=== PATIENT | female | born 1935 | race Two or more races ===

== ENCOUNTER → 2021-02-19 | Day surgery (SDC) | payer OTHER, BC ==
[2021-02-17 13:52] VITALS: BMI 18.3
[2021-02-19 09:38] VITALS: TEMP 98
[2021-02-19 10:38] VITALS: BP 121/64; PULSE 85
== END | disposition home or self-care (01) ==
LOC: JASU-ENDO 04:39
PROVIDERS: ATTEND Internal Medicine Gastroenterology
PROC: 0DB98ZX Excision of Duodenum, Via Natural or Artificial Opening Endoscopic, Diagnostic (ICD-10-PCS; 2021-02-19)
PROC: 0DB78ZX Excision of Stomach, Pylorus, Via Natural or Artificial Opening Endoscopic, Diagnostic (ICD-10-PCS; 2021-02-19)
PROC: 0DB68ZX Excision of Stomach, Via Natural or Artificial Opening Endoscopic, Diagnostic (ICD-10-PCS; 2021-02-19)
PROC: 0DB28ZX Excision of Middle Esophagus, Via Natural or Artificial Opening Endoscopic, Diagnostic (ICD-10-PCS; 2021-02-19)
PROC: 0DB38ZX Excision of Lower Esophagus, Via Natural or Artificial Opening Endoscopic, Diagnostic (ICD-10-PCS; 2021-02-19)
PROC: 0DJD8ZZ Inspection of Lower Intestinal Tract, Via Natural or Artificial Opening Endoscopic (ICD-10-PCS; principal; 2021-02-19 09:00)
DX: Z12.11 Encounter for screening for malignant neoplasm of colon (principal); K64.8 Other hemorrhoids; K57.30 Diverticulosis of large intestine without perforation or abscess without bleeding; K31.7 Polyp of stomach and duodenum; K29.50 Unspecified chronic gastritis without bleeding; K44.9 Diaphragmatic hernia without obstruction or gangrene; K29.80 Duodenitis without bleeding

== ENCOUNTER 2021-11-28 18:10 | Inpatient (IN) | payer OTHER, BC ==
[2021-11-28 19:54] LABS: BASO % 0.6 % (0-2.0); EOS % 1.7 % (0-4.5); HEMOGLOBIN 11.4 GM/dL (10.7-15.3); LYMPH % 21.5 % (8-40); MCH 31.1 pg (25.7-33.7); MCHC 34.5 g/dl (32.0-36.0); MEAN CELL VOLUME 90.2 fl (80-96); MEAN PLT VOLUME 9.2 fl (7.5-11.1); MONO % 8.5 % (3.8-10.2); NEUT % 67.7 % (42.8-82.8); PLATELET COUNT 182 10^3/uL (134-434); RBC 3.66 M/mm3 (3.60-5.2); RDW 13.5 % (11.6-15.6)
[2021-11-28 19:58] LABS: EPI CELLS 3 /uL (0-25.1); HYALINE CASTS 0 /uL (0-3.1); PH,URINE 5.5 (5.0-8.0); URINE APPEARANCE CLEAR; URINE BACTERIA 4 /uL (0-1359); URINE BILIRUBIN NEGATIVE (NEGATIVE); URINE COLOR YELLOW; URINE GLUCOSE (UA) NEGATIVE (NEGATIVE); URINE KETONE NEGATIVE (NEGATIVE); URINE LEUK ESTERASE NEGATIVE (NEGATIVE); URINE NITRITE NEGATIVE (NEGATIVE); URINE PROTEIN NEGATIVE (NEGATIVE); URINE RBC 3 /uL (0-23.9); URINE UROBILINOGEN 0.2 mg/dL (0.2-1.0); URINE WBC 7 /uL (0-25.8)
[2021-11-28 20:14] LABS: CALCIUM 8.7 mg/dL (8.5-10.1)
[2021-11-28 20:15] LABS: ALBUMIN 3.5 g/dl (3.4-5.0); BLOOD UREA NITROGEN 34.9 mg/dL (7-18)
[2021-11-28] MEDS ORDERED: SODIUM CHLORIDE 0.9% 500 ML INFUS.BAG IV ONE (20:16)
[2021-11-28 20:18] LABS: CREATININE 1.4 mg/dL (0.55-1.3)
[2021-11-28 20:19] LABS: BILIRUBIN,TOTAL 0.4 mg/dL (0.2-1); TOT PROT 6.6 g/dl (6.4-8.2)
[2021-11-28 22:37] LABS: CHLORIDE 106 mmol/L (98-107); SODIUM 141 mmol/L (136-145)
[2021-11-28 22:39] LABS: CALCIUM 8.3 mg/dL (8.5-10.1)
[2021-11-28 22:40] LABS: ALBUMIN 3.1 g/dl (3.4-5.0); ANION GAP 7 MMOL/L (8-16); BLOOD UREA NITROGEN 29.8 mg/dL (7-18); CO2 29 mmol/L (21-32); GLUCOSE,RANDOM 111 mg/dL (74-106)
[2021-11-28 22:43] LABS: CREATININE 1.3 mg/dL (0.55-1.3); SGOT/AST 22 U/L (15-37)
[2021-11-28 22:44] LABS: TOT PROT 6.1 g/dl (6.4-8.2)
[2021-11-28 22:46] LABS: ALK PHOS 66 U/L (45-117)
[2021-11-28 23:01] LABS: BILIRUBIN,TOTAL 0.3 mg/dL (0.2-1); SGPT/ALT 12 U/L (13-61)
[2021-11-28] MEDS ORDERED: ATORVASTATIN CA 80 MG TABLET (FP) PO SCH (23:08)
[2021-11-28] MEDS: ASPIRIN COATED 81 MG TABLET.EC PO SCH (23:15)
[2021-11-29] MEDS ORDERED: SODIUM CHLORIDE 1,000 ML IV SCH ×2 (02:15→10:09)
[2021-11-29] MEDS ORDERED: HEPARIN NA (PORCINE) 5,000 UNITS/ML 1ML VIAL IVPUSH ONE (04:08)
[2021-11-29] MEDS ORDERED: HEPARIN NA (PORCINE) 5,000 UNITS/ML 1ML VIAL IVPUSH PRN ×2 (04:08)
[2021-11-29] MEDS ORDERED: HEPARIN - 25,000 UNIT in SODIUM CHLORIDE 495 ML IV SCH (04:15)
[2021-11-29 04:39] VITALS: BMI 17.7
[2021-11-29] MEDS ORDERED: HEPARIN NA (PORCINE) 5,000 UNITS/ML 1ML VIAL SQ SCH (06:00)
[2021-11-29 06:55] LABS: HEMATOCRIT 32.8 % (32.4-45.2); HEMOGLOBIN 11.3 GM/dL (10.7-15.3); MCH 30.8 pg (25.7-33.7); MCHC 34.4 g/dl (32.0-36.0); MEAN CELL VOLUME 89.4 fl (80-96); MEAN PLT VOLUME 9.1 fl (7.5-11.1); PLATELET COUNT 184 10^3/uL (134-434); RBC 3.67 M/mm3 (3.60-5.2); RDW 13.3 % (11.6-15.6); WHITE BLOOD COUNT 7.1 K/mm3 (4.0-10.0)
[2021-11-29 07:16] LABS: ALBUMIN 3.1 g/dl (3.4-5.0); BLOOD UREA NITROGEN 24.7 mg/dL (7-18); CALCIUM 8.8 mg/dL (8.5-10.1); MAGNESIUM 1.7 mg/dL (1.8-2.4)
[2021-11-29 07:19] LABS: CREATININE 1.2 mg/dL (0.55-1.3)
[2021-11-29 07:39] LABS: BILIRUBIN,TOTAL 0.7 mg/dL (0.2-1)
[2021-11-29] MEDS: ASPIRIN COATED 81 MG TABLET.EC PO SCH (09:59)
[2021-11-29] MEDS ORDERED: MAGNESIUM 1GM/D5W 100ML - 100 ML IVPB IVPB ONE (10:04)
[2021-11-29] MEDS: metoPROLOL SUCCINATE 25 MG TAB.SR.24H (FP) PO SCH ×2 (12:04→22:11)
[2021-11-29] MEDS ORDERED: ENOXAPARIN NA (PORCINE) 40 MG/0.4 ML DISP.SYRIN SQ ONE (13:00)
[2021-11-29] MEDS ORDERED: ENOXAPARIN NA (PORCINE) 40 MG/0.4 ML DISP.SYRIN SQ SCH (22:00)
[2021-11-29] MEDS ORDERED: metoPROLOL SUCCINATE 25 MG TAB.SR.24H (FP) PO SCH (22:00)
[2021-11-29] MEDS: ATORVASTATIN CA 40 MG TABLET (FP) PO SCH (22:11)
[2021-11-30] MEDS: metoPROLOL SUCCINATE 25 MG TAB.SR.24H (FP) PO SCH (09:08)
[2021-11-30] MEDS: ASPIRIN COATED 81 MG TABLET.EC PO SCH (09:09)
[2021-11-30] MEDS: ENOXAPARIN NA (PORCINE) 40 MG/0.4 ML DISP.SYRIN SQ SCH (09:36)
[2021-11-30] MEDS ORDERED: PATIENT'S OWN MEDICATION (NON-FORMULARY) (Olmesartan Medoxomil [Olmesartan Medoxomil] 5 MG PO SCH (10:00)
[2021-11-30 12:16] LABS: CALCIUM 8.2 mg/dL (8.5-10.1)
[2021-11-30 12:17] LABS: ALBUMIN 2.9 g/dl (3.4-5.0); BLOOD UREA NITROGEN 14.6 mg/dL (7-18); MAGNESIUM 1.9 mg/dL (1.8-2.4)
[2021-11-30 12:20] LABS: CREATININE 0.8 mg/dL (0.55-1.3); PHOSPHOROUS 2.5 mg/dL (2.5-4.9)
[2021-11-30 12:22] LABS: BILIRUBIN,TOTAL 0.6 mg/dL (0.2-1); TOT PROT 5.6 g/dl (6.4-8.2)
[2021-11-30] MEDS: ATORVASTATIN CA 40 MG TABLET (FP) PO SCH (21:08)
[2021-12-01 07:18] LABS: HEMATOCRIT 32.1 % (32.4-45.2); MCHC 34.3 g/dl (32.0-36.0); MEAN CELL VOLUME 90.5 fl (80-96); MEAN PLT VOLUME 9.2 fl (7.5-11.1); PLATELET COUNT 175 10^3/uL (134-434); RBC 3.55 M/mm3 (3.60-5.2); RDW 13.5 % (11.6-15.6); WHITE BLOOD COUNT 7.7 K/mm3 (4.0-10.0)
[2021-12-01 07:46] LABS: CALCIUM 8.6 mg/dL (8.5-10.1)
[2021-12-01 07:47] LABS: ALBUMIN 3.1 g/dl (3.4-5.0); BLOOD UREA NITROGEN 12.6 mg/dL (7-18)
[2021-12-01 07:50] LABS: CREATININE 0.9 mg/dL (0.55-1.3)
[2021-12-01 07:51] LABS: BILIRUBIN,TOTAL 0.5 mg/dL (0.2-1)
[2021-12-01] MEDS: metoPROLOL SUCCINATE 25 MG TAB.SR.24H (FP) PO SCH ×2 (07:59→12:43)
[2021-12-01] MEDS ORDERED: REGADENOSON 0.4 MG/5 ML PRE-FILLED SYRINGE IVPUSH ONE ×2 (09:42→10:45)
[2021-12-01] MEDS: ENOXAPARIN NA (PORCINE) 40 MG/0.4 ML DISP.SYRIN SQ SCH (12:36)
[2021-12-01] MEDS: ASPIRIN COATED 81 MG TABLET.EC PO SCH (12:36)
[2021-12-01 15:21] VITALS: BP 113/45; PULSE 64; RESP 18; TEMP 97.8
== END 2021-12-01 17:37 | disposition home or self-care (01) | DRG 641 ==
LOC: JER 18:10 → JERBED 21:11 → J4W 11-29 02:11 → OBSVTOIN 12-01 10:17
PROVIDERS: ADMIT Internal Medicine; ATTEND Internal Medicine
DX: E86.0 Dehydration (principal); I24.8 Other forms of acute ischemic heart disease; I10 Essential (primary) hypertension; R55 Syncope and collapse; D64.9 Anemia, unspecified; M81.0 Age-related osteoporosis without current pathological fracture; R00.1 Bradycardia, unspecified
CPT/HCPCS: 36415; 70450-TC; 71045-TC-FY; 78452-TC; 80053; 81003; 82728; 82962; 83540; 83550; 83735; 84100; 84466; 84484; 85025; 85027; 85730; 93005; 93010; 93017; 93306-TC; 93880-TC; 99285-25; A9502; C9803-CS; G0378; J1644; J2785; U0003; U0005

== ENCOUNTER 2023-06-22 00:17 | Inpatient (IN) | payer OTHER, BC ==
[2023-06-22] MEDS: SODIUM CHLORIDE 0.9% 500 ML INFUS.BAG IV ONE (01:18)
[2023-06-22 01:32] LABS: INR 0.99 (0.83-1.09); PROTHROMBIN TIME (PATIENT) 11.5 SEC (9.7-13.0)
[2023-06-22 01:35] LABS: ACTIVATED PTT 26.4 SECONDS (25.2-36.5)
[2023-06-22 01:36] LABS: BASO % 0.6 % (0-2.0); HEMATOCRIT 37.2 % (32.4-45.2); HEMOGLOBIN 12.5 GM/dL (10.7-15.3); LYMPH % 19.8 % (8-40); MCH 31.4 pg (25.7-33.7); MCHC 33.7 g/dl (32.0-36.0); MEAN CELL VOLUME 93.2 fl (80-96); MEAN PLT VOLUME 9.4 fl (7.5-11.1); MONO % 8.7 % (3.8-10.2); NEUT % 68.9 % (42.8-82.8); PLATELET COUNT 196 10^3/uL (134-434); RBC 3.99 M/mm3 (3.60-5.2); RDW 14.1 % (11.6-15.6); WHITE BLOOD COUNT 7.4 K/mm3 (4.0-10.0)
[2023-06-22 02:04] LABS: EPI CELLS 0 /uL (0-25.1); HYALINE CASTS 0 /uL (0-3.1); URINE APPEARANCE CLEAR; URINE BACTERIA 2 /uL (0-1359); URINE BILIRUBIN NEGATIVE (NEGATIVE); URINE COLOR YELLOW; URINE GLUCOSE (UA) NEGATIVE (NEGATIVE); URINE KETONE NEGATIVE (NEGATIVE); URINE LEUK ESTERASE NEGATIVE (NEGATIVE); URINE NITRITE NEGATIVE (NEGATIVE); URINE PROTEIN NEGATIVE (NEGATIVE); URINE RBC 12 /uL (0-23.9); URINE UROBILINOGEN 0.2 mg/dL (0.2-1.0); URINE WBC 2 /uL (0-25.8)
[2023-06-22 02:08] LABS: POTASSIUM 3.9 mmol/L (3.5-5.1)
[2023-06-22 02:11] LABS: ALBUMIN 3.4 g/dl (3.4-5.0); BLOOD UREA NITROGEN 20.9 mg/dL (7-18); CALCIUM 8.7 mg/dL (8.5-10.1)
[2023-06-22 02:14] LABS: CREATININE 0.8 mg/dL (0.55-1.3)
[2023-06-22 02:16] LABS: BILIRUBIN,TOTAL 0.4 mg/dL (0.2-1); TOT PROT 6.8 g/dl (6.4-8.2)
[2023-06-22] MEDS ORDERED: ASPIRIN 81 MG CHEWABLE TABLETS ONE (03:32)
[2023-06-22] MEDS: ASPIRIN 81 MG CHEWABLE TABLETS PO ONE (03:35)
[2023-06-22 06:53] LABS: BASO % 0.6 % (0-2.0); EOS % 0.9 % (0-4.5); HEMOGLOBIN 11.6 GM/dL (10.7-15.3); MCHC 33.2 g/dl (32.0-36.0); MEAN CELL VOLUME 93.3 fl (80-96); MEAN PLT VOLUME 9.3 fl (7.5-11.1); MONO % 8.2 % (3.8-10.2); NEUT % 74.3 % (42.8-82.8); PLATELET COUNT 188 10^3/uL (134-434); RBC 3.76 M/mm3 (3.60-5.2); RDW 13.7 % (11.6-15.6); WHITE BLOOD COUNT 7.5 K/mm3 (4.0-10.0)
[2023-06-22 07:31] LABS: POTASSIUM 4.1 mmol/L (3.5-5.1)
[2023-06-22 07:33] LABS: CALCIUM 8.3 mg/dL (8.5-10.1)
[2023-06-22 07:34] LABS: BLOOD UREA NITROGEN 18.4 mg/dL (7-18); MAGNESIUM 2.1 mg/dL (1.8-2.4)
[2023-06-22 07:37] LABS: CREATININE 0.7 mg/dL (0.55-1.3); PHOSPHOROUS 2.5 mg/dL (2.5-4.9)
[2023-06-22 07:38] LABS: TOT PROT 5.9 g/dl (6.4-8.2)
[2023-06-22 07:39] LABS: BILIRUBIN,TOTAL 0.6 mg/dL (0.2-1)
[2023-06-22] MEDS: ENOXAPARIN NA (PORCINE) 60 MG/0.6 ML DISP.SYRIN SQ SCH (09:57)
[2023-06-22] MEDS: metoPROLOL SUCCINATE 25 MG TAB.SR.24H (FP) PO SCH (09:58)
[2023-06-22] MEDS: LOSARTAN POTASSIUM 25 MG TABLET PO SCH (09:58)
[2023-06-22] MEDS: ASPIRIN COATED 81 MG TABLET.EC PO SCH (09:58)
[2023-06-22] MEDS ORDERED: RALOXIFENE HCL 60 MG PO SCH (10:00)
[2023-06-22] MEDS ORDERED: ENOXAPARIN NA (PORCINE) 40 MG/0.4 ML DISP.SYRIN SQ SCH (10:00)
[2023-06-22] MEDS: ATORVASTATIN CA 40 MG TABLET (FP) PO SCH (21:22)
[2023-06-22] MEDS: HYDROCHLOROTHIAZIDE 12.5 MG CAPSULE (FP) PO SCH (21:23)
[2023-06-22] MEDS ORDERED: ATORVASTATIN CA 80 MG TABLET (FP) PO SCH (22:00)
[2023-06-23 08:08] LABS: HEMATOCRIT 33.7 % (32.4-45.2); HEMOGLOBIN 11.2 GM/dL (10.7-15.3); MCHC 33.2 g/dl (32.0-36.0); MEAN CELL VOLUME 93.3 fl (80-96); MEAN PLT VOLUME 9.5 fl (7.5-11.1); PLATELET COUNT 174 10^3/uL (134-434); RBC 3.61 M/mm3 (3.60-5.2); RDW 14.2 % (11.6-15.6); WHITE BLOOD COUNT 5.4 K/mm3 (4.0-10.0)
[2023-06-23 08:35] LABS: POTASSIUM 3.9 mmol/L (3.5-5.1)
[2023-06-23 08:36] LABS: CALCIUM 8.4 mg/dL (8.5-10.1)
[2023-06-23 08:40] LABS: CREATININE 0.8 mg/dL (0.55-1.3)
[2023-06-24 08:00] LABS: HEMOGLOBIN 12.2 GM/dL (10.7-15.3); MCH 32.1 pg (25.7-33.7); MCHC 34.9 g/dl (32.0-36.0); MEAN PLT VOLUME 9.8 fl (7.5-11.1); PLATELET COUNT 185 10^3/uL (134-434); RDW 14.2 % (11.6-15.6)
[2023-06-24 08:53] LABS: BLOOD UREA NITROGEN 18.3 mg/dL (7-18); CALCIUM 8.9 mg/dL (8.5-10.1)
[2023-06-24 08:55] LABS: CREATININE 0.8 mg/dL (0.55-1.3)
[2023-06-24 15:10] VITALS: BP 131/65; PULSE 65; RESP 18; TEMP 98.1
[2023-06-24 16:20] VITALS: BMI 19.2
== END 2023-06-24 16:43 | disposition home or self-care (01) | DRG 305 ==
LOC: JER 00:17 → JERBED 03:27 → J4S 06:26 → OBSVTOIN 17:56
PROVIDERS: ADMIT Internal Medicine; ATTEND Internal Medicine
DX: I16.0 Hypertensive urgency (principal); R55 Syncope and collapse; I10 Essential (primary) hypertension; M81.0 Age-related osteoporosis without current pathological fracture
CPT/HCPCS: 0241U-QW; 36415; 70450-TC; 71045-TC-FY; 80048; 80053; 80061; 81003; 83735; 84100; 84443; 84484; 85025; 85027; 85610; 85730; 93005; 93010; 93306-TC; 93880-TC; 99285-25; G0378

== ENCOUNTER 2023-11-01 16:43 | Emergency (ER) | payer OTHER, BC ==
[2023-11-01 17:02] VITALS: RESP 18; BMI 19.8
[2023-11-01] MEDS: LACTATED RINGERS SOLUTION 1000 ML INFUS.BAG IV ONE (18:06)
[2023-11-01 18:16] LABS: BASO % 0.7 % (0-2.0); HEMATOCRIT 38.4 % (32.4-45.2); HEMOGLOBIN 12.6 GM/dL (10.7-15.3); LYMPH % 14.9 % (8-40); MCH 30.6 pg (25.7-33.7); MCHC 32.7 g/dl (32.0-36.0); MEAN CELL VOLUME 93.5 fl (80-96); MEAN PLT VOLUME 9.7 fl (7.5-11.1); MONO % 7.5 % (3.8-10.2); NEUT % 74.9 % (42.8-82.8); PLATELET COUNT 180 10^3/uL (134-434); RBC 4.11 M/mm3 (3.60-5.2); RDW 14.4 % (11.6-15.6); WHITE BLOOD COUNT 7.9 K/mm3 (4.0-10.0)
[2023-11-01 18:33] LABS: INR 0.93 (0.83-1.09); PROTHROMBIN TIME (PATIENT) 10.5 SEC (9.7-13.0)
[2023-11-01 18:36] LABS: ACTIVATED PTT 26.5 SECONDS (25.2-36.5)
[2023-11-01 18:40] LABS: BLOOD UREA NITROGEN 22.8 mg/dL (7-18); CALCIUM 9.3 mg/dL (8.5-10.1)
[2023-11-01 18:41] LABS: ALBUMIN 3.6 g/dl (3.4-5.0); MAGNESIUM 2.3 mg/dL (1.8-2.4)
[2023-11-01 18:44] LABS: CREATININE 0.9 mg/dL (0.55-1.3)
[2023-11-01 18:45] LABS: BILIRUBIN,TOTAL 0.7 mg/dL (0.2-1); TOT PROT 6.9 g/dl (6.4-8.2)
[2023-11-01 19:33] LABS: URINE APPEARANCE CLEAR; URINE BILIRUBIN NEGATIVE (NEGATIVE); URINE COLOR YELLOW; URINE GLUCOSE (UA) NEGATIVE (NEGATIVE); URINE KETONE NEGATIVE (NEGATIVE); URINE LEUK ESTERASE NEGATIVE (NEGATIVE); URINE NITRITE NEGATIVE (NEGATIVE); URINE PROTEIN NEGATIVE (NEGATIVE); URINE UROBILINOGEN 0.2 mg/dL (0.2-1.0)
[2023-11-01 20:07] VITALS: BP 145/53; PULSE 69; TEMP 98.3
== END 2023-11-01 20:46 | disposition home or self-care (01) ==
LOC: JER 16:43
DX: R42 Dizziness and giddiness (principal); R00.1 Bradycardia, unspecified
CPT/HCPCS: 36415; 71045-TC-FY; 80053; 81003; 83735; 84484; 85025; 85610; 85730; 86850; 86900; 86901; 87086; 93005; 93010; 99285-25

== ENCOUNTER 2023-11-07 13:32 | Emergency (ER) | payer OTHER, BC ==
[2023-11-07 13:46] VITALS: TEMP 97.7; BMI 18.1
[2023-11-07 15:12] LABS: BASO % 0.6 % (0-2.0); EOS % 0.8 % (0-4.5); HEMATOCRIT 37.5 % (32.4-45.2); HEMOGLOBIN 12.7 GM/dL (10.7-15.3); LYMPH % 13.7 % (8-40); MCH 31.2 pg (25.7-33.7); MEAN CELL VOLUME 91.6 fl (80-96); MEAN PLT VOLUME 8.6 fl (7.5-11.1); MONO % 7.7 % (3.8-10.2); NEUT % 77.2 % (42.8-82.8); PLATELET COUNT 199 10^3/uL (134-434); RBC 4.09 M/mm3 (3.60-5.2); RDW 14.3 % (11.6-15.6); WHITE BLOOD COUNT 6.4 K/mm3 (4.0-10.0)
[2023-11-07 15:39] LABS: POTASSIUM 3.8 mmol/L (3.5-5.1)
[2023-11-07 15:41] LABS: CALCIUM 9.1 mg/dL (8.5-10.1)
[2023-11-07 15:42] LABS: ALBUMIN 3.8 g/dl (3.4-5.0); BLOOD UREA NITROGEN 17.9 mg/dL (7-18); MAGNESIUM 2.1 mg/dL (1.8-2.4)
[2023-11-07 15:45] LABS: PHOSPHOROUS 3.2 mg/dL (2.5-4.9)
[2023-11-07 15:46] LABS: BILIRUBIN,TOTAL 0.8 mg/dL (0.2-1); TOT PROT 7.2 g/dl (6.4-8.2)
[2023-11-07 16:48] VITALS: BP 145/78; PULSE 59; RESP 18
== END 2023-11-07 17:08 | disposition home or self-care (01) ==
LOC: JER 13:32
DX: R53.1 Weakness (principal)
CPT/HCPCS: 36415; 70450-TC; 80053; 83735; 84100; 84443; 84484; 85025; 93005; 93010; 99284-25